=== PATIENT | female | born 1985 | race Hispanic/Latino ===

== ENCOUNTER 2017-08-09 17:14 | Outpatient (CLI) | payer MEDICAID ==
[2017-08-09 18:12] VITALS: BP 111/60
[2017-08-09] MEDS ORDERED: LACTATED RINGERS 500 ML IV ONE (18:12)
--- NOTE | 2017-08-09 21:03 | Ultrasound Report ---
FINAL REPORT PROCEDURE: US OB BPP WO NON-STRESS TECHNIQUE: Sonographic evaluation for breathing, movement, tone, and amniotic fluid volume was performed. CPT 55667 HISTORY: FHR DECEL COMPARISON: No prior studies are available for comparison. FINDINGS: Amniotic fluid volume: Normal-score 2. At least one vertical pocket > 2 cm or more in vertical axis. breathing: Normal-score 2. movement: Normal-score 2. tone: Normal-score 2. Score: 8 of 8. IMPRESSION: Normal biophysical profile.
--- NOTE | 2017-08-09 21:10 | Ultrasound Report ---
FINAL REPORT PROCEDURE: US OB LIMITED TECHNIQUE: Real-time transabdominal sonography of the uterus, placenta, amniotic fluid, adnexa, and fetus was performed with image documentation. HISTORY: FHR DECEL COMPARISON: No prior studies are available for comparison. FINDINGS: GENERAL: IUP: Single living intrauterine . Position: Cephalic Fluid volume normal. CAROLINE 20.0 cm. Largest fluid pocket 6.6 cm. FETUS: Heart rate and rhythm: 144BPM, Regular. MEASUREMENTS: Not performed. Reported gestational Age: 30 weeks 6 days Estimated Due Date : October 12, 2017 IMPRESSION: Single intrauterine gestation in cephalic position. Fluid volume is normal..
== END 2017-08-09 20:20 | disposition home or self-care (01) ==
LOC: TRG 17:14
PROVIDERS: ATTEND Obstetrics & Gynecology
DX: O47.03 False labor before 37 completed weeks of gestation, third trimester (principal); Z3A.30 30 weeks gestation of pregnancy
CPT/HCPCS: 59025; 76815; 76819; 96360; J7120

== ENCOUNTER 2017-10-09 10:58 | Outpatient (CLI) | payer MEDICAID ==
[2017-10-09 11:55] VITALS: BP 119/62
[2017-10-10] MEDS ORDERED: PITOCin/NS 20 UNIT/1000ML DRIP 20,000 MILLIUNITS/1,000 ML BAG IV ONE ×2 (05:29→06:04)
== END 2017-10-09 15:37 | disposition home or self-care (01) ==
LOC: TRG 10:58
PROVIDERS: ATTEND Obstetrics & Gynecology
DX: O47.1 False labor at or after 37 completed weeks of gestation (principal); Z3A.39 39 weeks gestation of pregnancy
CPT/HCPCS: 59025; J2590

== ENCOUNTER 2017-10-09 22:25 | Inpatient (IN) | payer MEDICAID ==
[2017-10-09] MEDS ORDERED: LACTATED RINGERS 2,000 ML ONE (23:19)
[2017-10-09] MEDS ORDERED: PITOCin/NS 20 UNIT/1000ML DRIP 20 UNITS/1,000 ML BAG IV SCH (23:45)
[2017-10-09] MEDS ORDERED: LACTATED RINGERS 1,000 ML IV SCH (23:45)
[2017-10-09] MEDS ORDERED: XYLOCAINE 2% INFILTRATI ONE (23:57)
[2017-10-09] MEDS ORDERED: MINERAL OIL PO PRN (23:57)
[2017-10-09] MEDS ORDERED: BRETHINE IVP PRN (23:57)
[2017-10-09] MEDS ORDERED: BRETHINE SUB-Q PRN (23:57)
[2017-10-10] MEDS ORDERED: STADOL ONE (00:19)
[2017-10-10] MEDS ORDERED: STADOL IV PRN (00:20)
[2017-10-10 00:40] LABS: Hematocrit 38.8 % (30.3-42.9); Hemoglobin 13.6 gm/dl (10.1-14.3); Mean Corpuscular HGB Conc 35 % (30-34); Mean Corpuscular Hemoglobin 31 pg (28-32); Mean Corpuscular Volume 88 fl (79-97); Platelet Count 150 K/mm3 (140-440); Red Blood Count 4.42 M/mm3 (3.65-5.03); Red Cell Distribution Width 14.4 % (13.2-15.2)
[2017-10-10] MEDS ORDERED: NARCAN 2 MG/2 ML IV PRN (00:50)
[2017-10-10] MEDS ORDERED: fentaNYL-BUPIV 2 MCG/ML-0.125% 200 MCG/100 ML BAG EPIDURAL SCH (01:00)
--- NOTE | 2017-10-10 01:19 | Anesthesia Consultation ---
Anesthesia Consult and Med Hx Date of service: 10/10/17 - Airway Anesthetic Teeth Evaluation: Good ROM Head & Neck: Adequate Mental/Hyoid Distance: Adequate Mallampati Class: Class II Intubation Access Assessment: Probably Good - Cardiac Exam Cardiac Exam: RRR - Pre-Operative Health Status ASA Pre-Surgery Classification: ASA2 Proposed Anesthetic Plan: Epidural, Spinal - Pulmonary Hx Smoking: No Hx Asthma: No - Cardiovascular System Hx Hypertension: No - Central Nervous System Hx Neuromuscular Disorder: No Hx Seizures: No CVA: No Hx Back Pain: No - Endocrine Hx Renal Disease: No Hx Liver Disease: No Hx Insulin Dependent Diabetes: No Hx Non-Insulin Dependent Diabetes: No Hx Thyroid Disease: No - Hematic Hx Anemia: No - Other Systems Hx Alcohol Use: No Hx Obesity: Yes
--- NOTE | 2017-10-10 02:26 | History and Physical Report ---
History of Present Illness Date of examination: 10/10/17 Date of admission: 10/09/17 23:13 Chief complaint: active labor History of present illness: 32y/o @ 39+4 weeks presents in active labor with advanced cervical dilation. Past History Past Medical History: no pertinent history Past Surgical History: hemorrhoidectomy - Obstetrical History Expected Date of Delivery: 10/12/17 Actual Gestation: 39 Week(s) 5 Day(s) : 3 Para: 2 Hx # Term Pregnancies: 2 Number of Pregnancies: 0 Spontaneous Abortions: 0 Induced : 0 Number of Living Children: 2 Medications and Allergies Allergies Allergy/AdvReac Type Severity Reaction Status Date / Time No Known Allergies Allergy Verified 08/09/17 17:55 Home Medications Medication Instructions Recorded Confirmed Last Taken Type No Known Home Medications [No 10/09/17 10/10/17 Unknown History Reported Home Medications] Active Meds: Active Medications Butorphanol Tartrate (Stadol) 2 mg IV Q2H PRN PRN Reason: Labor Pain Ephedrine Sulfate (Ephedrine Sulfate) 10 mg IV Q2M PRN PRN Reason: Hypotension Lactated Ringer's (Lactated Ringers) 1,000 mls @ 125 mls/hr IV DIRECT TIMI Oxytocin/Sodium Chloride (Pitocin/Ns 20 Unit/1000ml Drip) 20 units in 1,000 mls @ 125 mls/hr IV DIRECT TIMI Fentanyl/Bupivacaine/Sodium Chlor (Fentanyl-Bupiv 2 Mcg/Ml-0.125%) 200 mcg in 100 mls @ 12 mls/hr EPIDURAL TITR TIMI; Protocol Mineral Oil (Mineral Oil) 30 ml PO QHS PRN PRN Reason: Constipation Naloxone HCl (Narcan 2 Mg/2 Ml) 0.2 mg IV Q5M PRN PRN Reason: Respiratory sedation Terbutaline Sulfate (Brethine) 0.25 mg SUB-Q ONCE PRN PRN Reason: Hyperstimulation/Hypertonicity Terbutaline Sulfate (Brethine) 0.25 mg IVP ONCE PRN PRN Reason: Hyperstimulation/Hypertonicity - Vital Signs Vital signs: Vital Signs Temp Pulse Resp BP 98.5 F 102 H 18 136/81 10/09/17 22:52 10/09/17 22:52 10/09/17 22:52 10/09/17 22:52 Temp Pulse Resp BP Pulse Ox 98.4 F 109 H 18 106/58 97 10/09/17 23:44 10/10/17 02:25 10/09/17 22:52 10/10/17 02:13 10/10/17 02:25 Results Result Diagrams: 10/09/17 23:35 Abnormal lab results 10/09/17 Range/Units 23:35 MCHC 35 H (30-34) % All other labs normal. Assessment and Plan - Patient Problems (1) Active labor at term Current Visit: Yes Status: Acute
[2017-10-10] MEDS ORDERED: XYLOCAINE 2% INFILTRATI ONE (02:28)
[2017-10-10] MEDS ORDERED: MINERAL OIL PO PRN (02:28)
[2017-10-10] MEDS ORDERED: BRETHINE SUB-Q PRN (02:28)
[2017-10-10] MEDS ORDERED: BRETHINE IVP PRN (02:28)
[2017-10-10] MEDS ORDERED: PITOCin/NS 20 UNIT/1000ML DRIP 20 UNITS/1,000 ML BAG IV SCH (03:00)
[2017-10-10] MEDS ORDERED: PITOCin/NS 30 UNIT/500ML 30 UNITS/500 ML BAG IV SCH (03:00)
[2017-10-10] MEDS ORDERED: LACTATED RINGERS 1,000 ML IV SCH (03:00)
--- NOTE | 2017-10-10 03:23 | Procedure Note ---
OB Delivery Note - Delivery Date of Delivery: 10/10/17 Surgeon: JAYRO MARIO Estimated blood loss: 200cc - Vaginal Delivery presentation: vertex Delivery position: OA Intrapartum events: meconium Delivery augmentation: rupture of membranes Delivery monitor: external FHT Route of delivery: Delivery placenta: spontaneous Delivery cord: 3 umbilical vessels Episiotomy: none Delivery laceration: 2nd degree Delivery repair: vicryl Anesthesia: epidural Delivery comments: She progressed to complete complete +2 and pushed to deliver a liveborn female with Apgars of 8 and 9. 's weight was 8 lbs. 0 oz. the anterolateral course was complicated by meconium stained fluid. After delivery of the head the shoulders delivered without difficulty. The cords clamped and cut 2 and the was placed on the warmer for further evaluation. The placenta delivered spontaneously intact with a three-vessel cord. The patient sustained a midline perineal second-degree laceration that was repaired in normal fashion with 2-0 Vicryl. Estimated blood loss was 200 mL - Infant A at 1 minute: 8 at 5 minutes: 9 Infant Gender: Female (weight 8 lbs. 0 oz.)
[2017-10-10] MEDS ORDERED: NORCO 5/325 PO PRN (03:24)
[2017-10-10] MEDS ORDERED: ZOFRAN IV PRN (03:24)
[2017-10-10] MEDS ORDERED: LANSINOH TP PRN (03:24)
[2017-10-10] MEDS ORDERED: BENADRYL PO PRN (03:24)
[2017-10-10] MEDS ORDERED: PHENERGAN PO PRN (03:24)
[2017-10-10] MEDS ORDERED: TYLENOL PO PRN (03:24)
[2017-10-10] MEDS ORDERED: PHENERGAN PR PRN (03:24)
[2017-10-10] MEDS ORDERED: DULCOLAX PR PRN (03:24)
[2017-10-10] MEDS ORDERED: TUCKS PAD TP PRN (03:24)
[2017-10-10] MEDS ORDERED: MILK OF MAGNESIA PO PRN (03:24)
[2017-10-10] MEDS ORDERED: SODIUM CHLORIDE FLUSH SYRINGE 10 ML IV PRN (04:00)
[2017-10-10] MEDS: MOTRIN PO SCH ×2 (05:56→19:27)
[2017-10-10] MEDS ORDERED: DERMOPLAST TP ONE (08:17)
[2017-10-10] MEDS ORDERED: DERMOPLAST TP PRN (09:23)
--- NOTE | 2017-10-10 14:29 | Progress Note ---
Assessment and Plan - Patient Problems (1) Active labor at term Current Visit: Yes Status: Acute Plan to address problem: patient doing well discharge home tomorrow Subjective - Subjective Date of service: 10/10/17 Interval history: Patient is without complaints. Pain well controlled. Tolerating regular diet Patient reports: appetite normal, voiding normally, pain well controlled [place]: doing well Objective - Vital Signs Latest vital signs: Vital Signs Temp Pulse Resp BP BP Pulse Ox 10/10/17 11:33 98.0 F 70 20 98/63 97 10/10/17 09:05 32.1 F L 86 22 107/64 97 10/10/17 05:10 98.9 F 88 18 105/62 10/10/17 04:56 88 112/66 10/10/17 04:42 98.1 F 100 H 120/77 10/10/17 04:11 92 H 105/62 10/10/17 03:56 91 H 109/56 10/10/17 03:41 100 H 117/57 10/10/17 03:22 98.2 F 111 H 109/55 10/10/17 03:13 121 H 114/52 10/10/17 03:05 94 H 100 10/10/17 03:00 121 H 100 10/10/17 02:59 102 H 127/78 10/10/17 02:55 107 H 100 10/10/17 02:50 99 H 100 10/10/17 02:45 102 H 100 10/10/17 02:43 81 95/58 10/10/17 02:40 100 H 100 10/10/17 02:38 93 H 92/55 60 L 10/10/17 02:35 104 H 99 10/10/17 02:30 109 H 96 10/10/17 02:25 109 H 97 10/10/17 02:20 101 H 96 10/10/17 02:15 96 H 96 10/10/17 02:13 100 H 106/58 10/10/17 02:10 103 H 96 10/10/17 02:05 112 H 96 10/10/17 02:00 85 99 10/10/17 01:57 90 104/62 10/10/17 01:55 94 H 102/61 98 10/10/17 01:53 98 H 104/62 10/10/17 01:51 100 H 106/65 10/10/17 01:50 97 H 98 10/10/17 01:49 103 H 105/67 10/10/17 01:47 94 H 100/60 10/10/17 01:45 108 H 101/61 99 10/10/17 01:43 91 H 108/69 10/10/17 01:41 114 H 108/63 10/10/17 01:40 115 H 100 10/10/17 01:39 91 H 110/59 10/10/17 01:37 112 H 114/62 10/10/17 01:35 93 H 117/67 100 10/10/17 01:33 105 H 110/59 10/10/17 01:31 109 H 106/58 10/10/17 01:30 106 H 113/64 99 10/10/17 01:29 100 H 108/65 10/10/17 01:26 105 H 107/60 10/10/17 01:25 101 H 104/54 95 10/10/17 01:23 123 H 106/59 10/10/17 01:21 112 H 88/51 10/10/17 01:20 107 H 96 10/10/17 01:19 115 H 82/50 10/10/17 01:17 120 H 99/51 10/10/17 01:15 108 H 108/65 95 10/10/17 01:13 99 H 106/71 80 L 10/10/17 01:11 91 H 111/59 10/10/17 01:10 91 H 97 10/10/17 01:09 82 115/65 10/10/17 01:07 85 117/64 10/10/17 01:05 100 H 119/62 96 10/10/17 01:03 98 H 127/65 10/10/17 01:01 104 H 138/65 10/10/17 01:00 108 H 95 10/10/17 00:54 108 H 95 10/10/17 00:48 102 H 94 10/10/17 00:43 116 H 94 10/10/17 00:30 18 10/09/17 23:49 101 H 125/82 10/09/17 23:44 98.4 F 10/09/17 22:56 102 H 136/81 10/09/17 22:52 98.5 F 102 H 18 136/81 Intake and Output 10/09/17 10/10/17 10/10/17 22:59 06:59 14:59 Intake Total 1999 240 Output Total 700 200 Balance 1300 40 Intake: Oral 240 Other 1999 Output: Urine 700 200 Void 700 200 Other: Total, Intake Amount 1999 240 Total, Output Amount 450 200 # Voids Void 1 Weight 90.718 kg 92.533 kg Estimated Blood Loss 200 - Exam Uterus: Present: normal, firm - Labs Labs: Abnormal lab results 10/09/17 Range/Units 23:35 MCHC 35 H (30-34) %
--- NOTE | 2017-10-10 14:31 | Discharge Summary ---
Providers - Providers Date of Admission: 10/09/17 23:13 Date of discharge: 10/11/17 Attending physician: LUANA LERNER MD Primary care physician: LUANA LERNER MD Hospitalization Reason for admission: active labor Delivery: complications: none Discharge diagnosis: IUP at term delivered Pertinent studies: Patient admitted in active labor. She had a . uncomplicated. Condition at discharge: Good Disposition: DC-01 TO HOME OR SELFCARE - Discharge Diagnoses (1) Active labor at term Status: Acute Plan - Discharge Medications Prescriptions: HYDROcodone/ACETAMINOPHEN [[place] 5-325 Tablet] 1 each PO Q6HR PRN #30 tablet PRN Reason: Pain, Mild (1-3) Ibuprofen [Motrin] 800 mg PO Q8HR PRN #60 tablet PRN Reason: Pain, Mild (1-3) - Provider Discharge Summary Activity: no sex for 6 weeks, no heavy lifting 4 weeks, no strenuous exercise Diet: routine Instructions: routine Additional instructions: [] Smoking cessation referral if applicable(refer to patient education folder for contact #) [] Refer to [facility] Booklet Call your doctor immediately for: * Fever > 100.5 * Heavy vaginal bleeding ( >1 pad per hour) * Severe persistent headache * Shortness of breath * Reddened, hot, painful area to leg or breast * schedule visit in 4 weeks - Follow up plan
[2017-10-10 16:51] LABS: Hematocrit 35.8 % (30.3-42.9); Hemoglobin 11.8 gm/dl (10.1-14.3)
[2017-10-11] MEDS: MOTRIN PO SCH ×2 (00:30→06:37)
[2017-10-11] MEDS ORDERED: BOOSTRIX IM ONE (06:00)
[2017-10-11 09:38] VITALS: BP 97/57
== END 2017-10-11 16:48 | disposition home or self-care (01) | DRG 775 ==
LOC: TRG 22:25 → LD 23:13 → OB 10-10 05:25
PROVIDERS: ADMIT Obstetrics & Gynecology; ATTEND Obstetrics & Gynecology
PROC: 10E0XZZ Delivery of Products of Conception, External Approach (ICD-10-PCS; principal; 2017-10-10)
PROC: 0KQM0ZZ Repair Perineum Muscle, Open Approach (ICD-10-PCS; 2017-10-10)
PROC: 3E0R3BZ Introduction of Anesthetic Agent into Spinal Canal, Percutaneous Approach (ICD-10-PCS; 2017-10-10)
PROC: 00HU33Z Insertion of Infusion Device into Spinal Canal, Percutaneous Approach (ICD-10-PCS; 2017-10-10)
PROC: 10907ZC Drainage of Amniotic Fluid, Therapeutic from Products of Conception, Via Natural or Artificial Opening (ICD-10-PCS; 2017-10-10)
DX: O77.0 Labor and delivery complicated by meconium in amniotic fluid (principal); O99.214 Obesity complicating childbirth; E66.9 Obesity, unspecified; O70.1 Second degree perineal laceration during delivery; Z3A.39 39 weeks gestation of pregnancy; Z37.0 Single live birth; Z68.37 Body mass index [BMI] 37.0-37.9, adult
CPT/HCPCS: 36415; 59025; 85014; 85018; 85027; 86592; 86850; 86900; 86901; 87806; 90471; 90715; 96360; 96361; 96374; A6250; J0595; J2590; J7120